=== PATIENT | male | born 1960 | race Caucasian/White ===

== ENCOUNTER 2018-10-27 00:29 | Outpatient (CLI) | payer MEDICARE, SELFPAY ==
--- NOTE | 2018-10-27 12:54 | DI.CT_ITS ---
SYMPTOMS/DIAGNOSIS: MAXILLARY SINUSITIS NOT IMPROVING ON ANTIBIOTICS, CHRONIC SINUSITIS, J32.[address]: CT examination of the paranasal sinuses was performed according to the usual protocol. Note is made of low attenuation in the anterior aspect of the right middle cranial fossa. This may represent an area of encephalomalacia or arachnoid cyst, but other etiologies including space-occupying neoplasm or chronic hematoma are not excluded. No previous CT available for comparison. Old examinations are requested for comparison or, if no old exams are available from other institutions, a brain MRI would be recommended. The orbital and temporal bone structures appear intact. Mastoid air cells are clear. Paranasal sinuses are clear. The ostiomeatal complexes of the maxillary antra appear intact bilaterally. Note is made of nasal septal deviation to the right. CONCLUSION: No evidence of sinusitis or mastoiditis. Incidental finding of abnormal attenuation/fluid attenuation in right middle cranial fossa. Brain MRI requested for further evaluation if no previous studies are available for comparison.
== END 2018-10-27 00:49 ==
PROVIDERS: PCP Family Medicine; Visit Provider Family Medicine
DX: J32.9 Chronic sinusitis, unspecified (principal); J34.2 Deviated nasal septum
CPT/HCPCS: 70486

== ENCOUNTER 2018-11-08 10:56 | Outpatient (CLI) | payer MEDICARE, SELFPAY ==
[2018-11-08 12:31] LABS: BUN 21 mg/dL (7-18); CREATININE 1.34 mg/dL (0.70-1.30); Estimated GFR 54.56 (mL/min/1.73m2)
== END 2018-11-08 11:16 ==
PROVIDERS: PCP Family Medicine; Visit Provider Physician Assistant
DX: J01.01 Acute recurrent maxillary sinusitis (principal)
CPT/HCPCS: 36415; 84520; 82565

== ENCOUNTER 2018-11-14 01:20 | Outpatient (CLI) | payer MEDICARE, SELFPAY ==
[2018-11-14] MEDS: Normal Saline Flush 10 ML SYR IVP (08:55)
[2018-11-14] MEDS: Gadoterate meglumine 20 ML VIAL 17 ML IVP (08:55)
--- NOTE | 2018-11-14 09:06 | DI.MRI_ITS ---
SYMPTOM/DIAGNOSIS: RECENT ACUTE MAXILLARY SINUSITIS, J01.01, F/U ABNL CT, R93.0, ABNL ATTENUATION/FLUID RT MIDDLE CRANIAL FOSSA IAC/BRAIN MRI: Routine pre and post contrast examination was performed. Comparison is made with sinus CT from 10/27/18. In the right middle cranial fossa, there is an extra-axial lesion measuring 4 cm. transverse by 2.9 cm. AP by 3 cm. craniocaudad. It follows CSF on all pulse sequences and shows no enhancement or solid component. There is some mass effect on the adjacent right temporal lobe. This is most suggestive of an arachnoid cyst. There is normal signal seen in the brain parenchyma. The ventricles are intact. The basilar cisterns are patent. There is no acute midline shift or mass effect. The diffusion weighted images are unremarkable. No intracranial hemorrhage is seen. There is a normal flow void seen in the [place] of [place]. The visualized paranasal sinuses are clear. The orbits and retro-orbital soft tissues are unremarkable. The internal auditory canals and cerebellar pontine angles have a normal appearance. Following contrast administration, no enhancing lesions are appreciated. IMPRESSION: 4 by 3 cm. lesion in the anterior aspect of the right middle cranial fossa as described above. The findings are most suggestive of a benign lesion such as an arachnoid cyst.
== END 2018-11-14 01:40 ==
PROVIDERS: PCP Family Medicine; Visit Provider Physician Assistant
DX: J01.01 Acute recurrent maxillary sinusitis (principal); R93.0 Abnormal findings on diagnostic imaging of skull and head, not elsewhere classified; G93.89 Other specified disorders of brain; G93.0 Cerebral cysts
CPT/HCPCS: 70553

== ENCOUNTER 2019-04-17 03:41 | Emergency (ER) | payer MEDICARE, SELFPAY ==
[2019-04-17 03:50] VITALS: BP 153/91; PULSE 89; RESP 18; TEMP 36.5; O2SAT 96
--- NOTE | 2019-04-17 03:59 | W.ED.GENAD ---
Discharge Plan Disposition Patient Disposition: HOME Condition: Good Discharge Details Chief Complaint: FacialProb Clinical Impression: Sinusitis Primary Care Provider: Rick Mccarthy ED Provider: Refugio Hansen Home Meds and New Rx's Prescriptions: New fluticasone propionate 50 mcg/actuation spray,suspension 1 spray JOHNIE BID Qty: 9.9 RF: 0 amoxicillin-pot clavulanate [Augmentin] 875-125 mg tablet 1 tab PO BID 14 Days Qty: 28 RF: 0 loratadine 10 mg capsule 10 mg PO DAILY Qty: 14 RF: 0 No Action cetirizine 10 mg tablet 10 mg PO DAILY Qty: 90 RF: 3 clopidogrel 75 mg tablet 75 mg PO DAILY Qty: 90 RF: 4 fluticasone propionate 50 mcg/actuation spray,suspension 1 spray NS BID Qty: 3 RF: 3 rosuvastatin 5 mg tablet 5 mg PO DAILY Qty: 30 RF: 2 aspirin [Aspirin Low-Strength] 81 MG tablet,chewable 81 mg PO DAILY RF: 0 sildenafil [Viagra] 100 MG tablet 0.5 - 1 tab PO As Directed Qty: 30 RF: 5 naproxen 500 MG tablet 500 mg PO BID PRNQty: 30 RF: 1 levothyroxine [Synthroid] 88 MCG tablet 88 mcg PO DAILY Qty: 90 RF: 4 ranitidine HCl [Zantac Maximum Strength] 150 MG tablet 150 mg PO BID PRNQty: 180 RF: 4 nitroglycerin [Nitrostat] 0.4 mg tablet, sublingual 0.4 mg Sublingual PRN Qty: 25 RF: 1 carbamazepine [Tegretol] 200 mg tablet 300 mg PO BID Qty: 270 RF: 4 Discharge Instructions Instructions: Sinusitis (ED) Additional Instructions: Please take the antibiotic, nasal spray, and antihistamine medication as directed. If you notice any worsening of your symptoms, or any new symptoms such as vomiting, diarrhea, fever, chills, shortness of breath, chest pain, numbness, weakness, or fainting , please return immediately to the emergency department for reevaluation. Please follow up with your primary care provider as soon as possible for reassessment and reevaluation. As always, it was a pleasure participating in your medical care today. Referrals: Rick Mccarthy MD [Primary Care Provider] - Medical Decision Making This is a pleasant 58-year-old male with a past medical history of myocardial infarction previous dental caries who presents today for evaluation of right upper sinus and dental pain. 1 month ago he had similar but less severe pain, at that time he saw his dentist, was given penicillin but had mild improvement of his symptoms. However the symptoms seem to have returned over the last few days, in conjunction with congestion. Physical exam demonstrates minimal tenderness over the right upper posterior molar tooth, but also notable tenderness over the maxillary sinus on the right. Slightly difficult to differentiate between sinusitis and dental pain, dental block was given, and although complete anesthesia was achieved over the tooth area the patient's pain persisted. I feel that this would suggest that his signs and symptoms are secondary to sinusitis and not actual dental pain. Signs and symptoms at this time are inconsistent with venous sinus abscess, sepsis, Angel's angina. patient will be given Augmentin, fluticasone, and loratadine for home use for sinusitis. Discussed red flags which to return. I have extensively reviewed the treatment plan and discharge instructions with the patient. I have addressed all patient concerns at this time. The patient was made aware of what symptoms to monitor for that would warrant a return to the emergency department. Discussed the plan with the patient, they demonstrate verbal understanding and agreement with our assessment and plan at this time. Time out was taken to identify the correct patient, procedure, and site. Risks and benefits were discussed with the patient and consent was obtained. Direct pressure was held over the area prior to the procedure to reduce painful injection. 5 cc?s of Lidocaine 1% and Bupivacaine 0.25% was instilled into the right upper superior posterior alveolar space with a 27 gauge needle.Complete analgesia of the tooth was obtained. The patient tolerated the procedure. There were no complications. HPI General Date/Time Provider Initiated Documentation: 04/17/19 03:47. HPI Narrative: This is a 58-year-old male with past medical history of myocardial infarction, previous dental caries, who presents today for evaluation of right upper tooth pain and right-sided sinus pain. Patient states that one month ago he developed mild achiness in his right upper molars. He was seen by his dentist, prescribed penicillin, pain resolved with this. This was 3 to 4 weeks ago. Over the last few days the patient has had a return of his symptoms, he describes it as an achiness in his right upper tooth in the posterior molars, as well as the right maxillary sinuses. There is some radiation down to the posterior lower jaw on the right. No pain in the neck or chest. He states that his symptoms when he had his myocardial infarction were completely dissimilar to this. He denies any fever chills or discharge. No other complaints at this time. No other modifying factors. Related Data Home Medications Medication Instructions Recorded Confirmed aspirin [Aspirin Low-Strength] 81 mg PO DAILY tab 10/05/12 04/11/19 sildenafil [Viagra] 0.5 - 1 tab PO As Directed #30 05/18/17 04/11/19 tab-cap naproxen 500 mg PO BID PRN #30 tab-cap 08/27/17 04/11/19 levothyroxine [Synthroid] 88 mcg PO DAILY #90 tab 02/10/18 04/11/19 ranitidine HCl [Zantac] 150 mg PO BID PRN #180 tab 02/10/18 04/11/19 nitroglycerin 0.4 mg sublingual 0.4 mg SUBLINGUAL PRN #25 tab-cap 04/11/18 04/11/19 tablet fluticasone propionate 50 1 spray NS BID #3 ea 05/13/18 04/11/19 mcg/actuation nasal spray,suspension carbamazepine 200 mg tablet 300 mg PO BID #270 tab 07/22/18 04/11/19 cetirizine 10 mg tablet 10 mg PO DAILY #90 tab-cap 09/01/18 04/11/19 clopidogrel 75 mg tablet 75 mg PO DAILY #90 tab-cap 09/01/18 04/11/19 rosuvastatin 5 mg tablet 5 mg PO DAILY #30 tab 04/11/19 04/11/19 amoxicillin-pot clavulanate 1 tab PO BID 14 Days #28 tab 04/17/19 [Augmentin] fluticasone propionate 1 spray JOHNIE BID #9.9 ml 04/17/19 loratadine 10 mg PO DAILY #14 cap 04/17/19 Previous Rx's Medication Instructions Recorded sildenafil [Viagra] 0.5 - 1 tab PO As Directed #30 05/18/17 tab-cap levothyroxine [Synthroid] 88 mcg PO DAILY #90 tab 02/10/18 nitroglycerin 0.4 mg sublingual 0.4 mg SUBLINGUAL PRN #25 tab-cap 04/11/18 tablet fluticasone propionate 50 1 spray NS BID #3 ea 05/13/18 mcg/actuation nasal spray,suspension carbamazepine 200 mg tablet 300 mg PO BID #270 tab 07/22/18 cetirizine 10 mg tablet 10 mg PO DAILY #90 tab-cap 09/01/18 clopidogrel 75 mg tablet 75 mg PO DAILY #90 tab-cap 09/01/18 rosuvastatin 5 mg tablet 5 mg PO DAILY #30 tab 04/11/19 amoxicillin-pot clavulanate 1 tab PO BID 14 Days #28 tab 04/17/19 [Augmentin] fluticasone propionate 1 spray JOHNIE BID #9.9 ml 04/17/19 loratadine 10 mg PO DAILY #14 cap 04/17/19 Allergies Allergy/AdvReac Type Severity Reaction Status Date / Time celecoxib Allergy Unknown Unverified 04/11/19 13:45 shellfish derived Allergy Unknown SHRIMP Unverified 04/11/19 13:45 General Stated Complaint: FacialProb GUY: 4 Review of Systems Review of Systems ROS Unobtainable: All systems reviewed & are unremarkable except as noted in HPI and below PFSH Medical History (Updated 04/11/19 @ 14:10 by Rick Mccarthy MD) Myocardial infarction (Resolved 12/27/14) Surgical History (Updated 04/04/19 @ 08:57 by Benson Davis) Arthroplasty of knee (~1997) right; medial meniscus Splenomegaly Social History (Updated 09/05/18 @ 08:32 by Rainer Karimi) Smoking/Tobacco Use Status: Former Tobacco Use Second Hand Exposure: Yes Alcohol Intake: never Drug use: Never Substance use type: does not use Household members: none Housing: house Pets and animals: No Sexually active: Yes Do you think of yourself as: straight/heterosexual Current gender identity: male What is your relationship status?: How often do you talk on the phone with friends or family?: three or more times per week How often do you get together with friends or relatives?: three or more times per week How often do you attend congregational or advent services?: 1-3 times per year Do you belong to any clubs or organized social groups?: no Panel score (0-1 are the most socially isolated patients): 1 What type of physical activity do you participate in: other Duration: 15-30 minutes/day Frequency: 1-2 times per week Katy/Jehovah'S Witness: Judaism Special katy needs: No Do you feel safe in your relationship?: Yes Exam Narrative Exam Narrative: 1.Const: Well-nourished, Well-developed, appearing stated age 2.Eyes: PERRL, no conjunctival injection, and symmetrical lids. 3.ENT: Atraumatic external nose and ears. Moist MM. Neck: Symmetric, trachea midline, No thyromegaly. Mild dental caries and caps throughout. Mild tenderness over the posterior right upper molars. No evidence of periapical abscess or swelling or discharge. Mild tenderness over maxillary sinus on the right. No carotid bruits, no pain in the jaw. Patient demonstrates good movement of cervical neck. There is no nuchal rigidity, no nuchal tenderness. Patient is able to flex the neck without any difficulty or significant pain. Negative Kernig's and Brudzinski sign. 4.CVS: +S1/S2, No murmurs or gallops. Peripheral pulses 2+ and equal in all extremities. Brisk capillary refill in all extremities. 5.RESP: Unlabored respiratory effort. Clear to auscultation bilaterally. No wheezes rales or rhonchi 6.GI: Soft, Nontender/Nondistended, No hepatosplenomegaly. No guarding or rebound. 7.MSK: Normocephalic/Atraumatic, Extremities w/o deformity or ttp No cyanosis or clubbing, Normal movement of all extremities 8.Skin: Warm, Dry. No rashes or lesions. 9.Neuro: trestleman II-XII grossly intact. Sensation grossly intact, no focal neurologic deficits. 10.Psych: (AAO) x3. Appropriate mood and affect Course Vital Signs Vital signs: Vital Signs Temperature 36.5 C 04/17/19 03:50 Pulse 89 04/17/19 03:50 Respiratory Rate 18 04/17/19 03:50 Blood Pressure 153/91 H 04/17/19 03:50 Pulse Oximetry 96 04/17/19 03:50 Temperature 36.5 C 04/17/19 03:50 Temperature Source Tympanic 04/17/19 03:50 Pulse 89 04/17/19 03:50 Respiratory Rate 18 04/17/19 03:50 Respiratory Effort 04/17/19 03:55 Blood Pressure 153/91 H 04/17/19 03:50 Blood Pressure Position Sitting 04/17/19 03:50 Pulse Oximetry 96 04/17/19 03:50 Oxygen Delivery Method Room Air 04/17/19 03:50 Oxygen Flow Rate 0 04/17/19 03:50 Pain Level 9 04/17/19 03:50
[2019-04-17] MEDS: Amoxicillin 875/Clav. 125 TAB PO (04:13)
== END 2019-04-17 04:20 | disposition home or self-care (01) ==
PROVIDERS: Emergency Provider Student in an Organized Health Care Education/Training Program; PCP Family Medicine
DX: J01.90 Acute sinusitis, unspecified (principal)
CPT/HCPCS: 64400; 99283

== ENCOUNTER 2019-05-11 07:00 | Outpatient (CLI) | payer MEDICARE, SELFPAY ==
[2019-05-11 12:38] LABS: Calculated LDL 128 mg/dL; Cholesterol 228 mg/dL (50-200); HDL Cholesterol 52 mg/dL (40-60); Triglyceride 242 mg/dL (30-150)
== END 2019-05-11 07:20 ==
PROVIDERS: PCP Family Medicine; Visit Provider Family Medicine
DX: E78.5 Hyperlipidemia, unspecified (principal)
CPT/HCPCS: 36415; 80061

== ENCOUNTER 2020-02-06 07:59 | Outpatient (CLI) | payer MEDICARE, SELFPAY ==
[2020-02-11 11:02] LABS: SARS-CoV-2 RNA Undetected (Undetected)
== END 2020-02-06 08:19 ==
PROVIDERS: Family Medicine; PCP Family Medicine; Visit Provider Family Medicine
DX: J06.9 Acute upper respiratory infection, unspecified (principal)
CPT/HCPCS: U0003

== ENCOUNTER 2020-02-06 09:40 | Emergency (ER) | payer MEDICARE, SELFPAY ==
[2020-02-06 09:44] VITALS: BP 156/89; PULSE 98; TEMP 36.6; O2SAT 98
--- NOTE | 2020-02-06 10:04 | ED.GENADUL_ITS ---
Discharge Plan Disposition Patient Disposition: HOME Condition: Stable Discharge Details Chief Complaint: GenMedical Clinical Impression: Sinusitis Primary Care Provider: Rick Mccarthy ED Provider: Willy Osman Home Meds and New Rx's Prescriptions: New amoxicillin 875 mg tablet 875 mg PO BID Qty: 20 RF: 0 Continued fluticasone propionate 50 mcg/actuation spray,suspension 1 spray NS BID Qty: 3 RF: 3 alirocumab 75 mg/mL pen injector 75 mg SC Q2W RF: 0 clopidogrel 75 mg tablet 75 mg PO DAILY Qty: 90 RF: 4 aspirin [Aspirin Low-Strength] 81 MG tablet,chewable 81 mg PO DAILY RF: 0 sildenafil [Viagra] 100 MG tablet 0.5 - 1 tab PO As Directed Qty: 30 RF: 5 carbamazepine [Tegretol] 200 mg tablet 300 mg PO BID Qty: 270 RF: 4 levothyroxine [Synthroid] 88 mcg tablet 88 mcg PO DAILY Qty: 90 RF: 4 nitroglycerin [Nitrostat] 0.4 mg tablet, sublingual 0.4 mg Sublingual PRN Qty: 25 RF: 1 Discharge Instructions Instructions: Sinusitis (ED) Additional Instructions: Amoxicillin as directed. Expr-osn-nlrjoxf medications as directed for symptomatic control. Please watch for new or worsening symptoms and return to the ER for any concerns. I do recommend reaching out your primary care provider and ENT specialist for prompt outpatient reevaluation. Medical Decision Making 59-year-old gentleman presents requesting a prescription for amoxicillin for his acute on chronic sinus infection. Given his history of splenectomy he is concerned about a weakened immune response. He reports this is been going on for quite some time, evaluated by both his primary care and ENT specialty in the past. He has tried cigz-lmc-gprhkzv medications without relief. Symptoms are now present going on nearly a week, pain in his face, teeth, sinuses. He is currently afebrile. Given the duration of his symptoms, his past medical history of multiple sinus infections, and his facial pain, I do believe that treating with antibiotics is reasonable. Given the COVID pandemic he is currently unable to be seen by his primary care provider. Medical Records Medical records reviewed: Yes I reviewed the patient's medical records. HPI General Mode of arrival: ambulatory . Date/Time Provider Initiated Documentation: 02/06/20 09:41 . Limitations to Documentation: no limitations . Information obtained by: patient . HPI Narrative: This is a 59-year-old gentleman with history of splenectomy, GERD hypothyroidism, seizure disorder, heart disease, [place], anemia, presenting with what he describes as a sinus infe ction is been going on for little over a week. He reports pain and pressure in his forehead, face, teeth. He reports that he has a long history of similar sinus infections, has followed up with ENT specialist, has been trying vlmi-guo-mymzhgu medications without any significant relief. He is concerned because he reports I have a weak immune response and if I do not get antibiotics now I will be laying in the hospital stretcher in a week from now. He denies global headache, sore throat, neck pain, fever, chest pain, shortness of breath. Related Data Home Medications Medication Instructions Recorded Confirmed aspirin [Aspirin Low-Strength] 81 mg PO DAILY tab 10/05/12 02/06/20 sildenafil [Viagra] 0.5 - 1 tab PO As Directed #30 05/18/17 02/06/20 tab-cap fluticasone propionate 50 1 spray NS BID #3 ea 05/13/18 02/06/20 mcg/actuation nasal spray,suspension Tegretol 200 mg tablet 300 mg PO BID #270 tab NS 04/17/19 02/06/20 levothyroxine 88 mcg tablet 88 mcg PO DAILY #90 tab 05/10/19 02/06/20 alirocumab 75 mg/mL subcutaneous 75 mg SC Q2W 09/08/19 02/06/20 pen injector clopidogrel 75 mg tablet 75 mg PO DAILY #90 tab-cap 09/08/19 02/06/20 nitroglycerin 0.4 mg sublingual 0.4 mg SUBLINGUAL PRN #25 tab-cap 09/29/19 02/06/20 tablet amoxicillin 875 mg PO BID #20 tab 02/06/20 Previous Rx's Medication Instructions Recorded sildenafil [Viagra] 0.5 - 1 tab PO As Directed #30 05/18/17 tab-cap fluticasone propionate 50 1 spray NS BID #3 ea 05/13/18 mcg/actuation nasal spray,suspension Tegretol 200 mg tablet 300 mg PO BID #270 tab NS 04/17/19 levothyroxine 88 mcg tablet 88 mcg PO DAILY #90 tab 10/23/19 clopidogrel 75 mg tablet 75 mg PO DAILY #90 tab-cap 09/08/19 nitroglycerin 0.4 mg sublingual 0.4 mg SUBLINGUAL PRN #25 tab-cap 09/29/19 tablet amoxicillin 875 mg PO BID #20 tab 02/06/20 Allergies Allergy/AdvReac Type Severity Reaction Status Date / Time celecoxib Allergy Unknown Verified 02/06/20 09:47 shellfish derived Allergy Unknown SHRIMP Verified 02/06/20 09:47 General Stated Complaint: GenMedical GUY: 4 Review of Systems Constitutional Constitutional: Denies fever(s) Eyes Eyes: Denies eye discharge ENT Ears, Nose, Mouth, and Throat: Denies otalgia, Denies neck pain, Reports sinus pressure and Denies sore throat Cardiovascular Cardiovascular: Denies chest pain and Denies dyspnea Respiratory Respiratory: Denies cough and Denies dyspnea Gastrointestinal Gastrointestinal: Denies abdominal pain, Denies nausea and Denies vomiting Musculoskeletal Musculoskeletal: Denies neck pain Integumentary/Breasts Skin/Breast: Denies rash [facility] Medical History Myocardial infarction (Resolved 12/27/14) Surgical History Arthroplasty of knee (~1997) right; medial meniscus Splenomegaly Family History Mother No problems noted. Father No problems noted. Sister No problems noted. Brother No problems noted. Social History Smoking/Tobacco Use Status: Former Tobacco Use Quit Date: 07/19/79 Second Hand Exposure: Yes Alcohol Intake: current Alcohol Intake frequency: holidays/special occasions only Alcohol type: beer Drug use: Never Substance use type: does not use Household members: none Housing: house Communication Needs: None Pets and animals: No Sexually active: Yes Do you think of yourself as: straight/heterosexual Current gender identity: male What is your relationship status?: How often do you talk on the phone with friends or family?: three or more times per week How often do you get together with friends or relatives?: three or more times per week How often do you attend yazdanism or baptism services?: 1-3 times per year Do you belong to any clubs or organized social groups?: no Panel score (0-1 are the most socially isolated patients): 1 Duration: 15-30 minutes/day Frequency: 3-4 times per week Katy/Druze: Tenriism Special katy needs: No Seatbelt use: always Helmet use: Yes Helmet use: always Drive intox or ride w/intox city route driver: No Do you feel safe at home: Yes Do you feel safe in your relationship?: Yes Exam Const General: cooperative, healthy appearing, comfortable and no acute distress Orientation: alert, awake and oriented x3 HENMT Head: normal to inspection, normocephalic and atraumatic Ears: external ears normal, TM's normal bilaterally and EAC's normal General nose exam: external nose normal and mucous membranes and turbinates abnormal erythematous Face and sinus: sinus tenderness frontal and maxillary Mouth: moist mucous membranes Teeth and gingiva: dentition normal Throat: posterior oropharynx normal Eyes Conjunctivae: conjunctivae normal Sclera: sclerae normal Neck Neck: normal visual inspection, full ROM, no lymphadenopathy, no meningeal signs, trachea midline, supple and nontender Resp Effort & Inspection: normal respiratory effort and able to speak in complete sentences Auscultation: clear to auscultation bilaterally Cardio Rate: regular rate Rhythm: regular rhythm Skin General skin exam: no rashes or lesions noted Neuro General: patient alert, patient awake, moves all extremities and no focal motor deficits Sensory Exam: no sensory deficits noted Psych Appearance: grossly normal Mental Status: mental status grossly normal Course Vital Signs Vital signs: Vital Signs Temperature 36.6 C 02/06/20 09:44 Pulse 98 H 02/06/20 09:44 Blood Pressure 156/89 H 02/06/20 09:44 Pulse Oximetry 98 02/06/20 09:44 Temperature 36.6 C 02/06/20 09:44 Pulse 98 H 02/06/20 09:44 Respiratory Effort Non-Labored 02/06/20 09:54 Respiratory Depth Normal 02/06/20 09:54 Respiratory Pattern Normal 02/06/20 09:54 Blood Pressure 156/89 H 02/06/20 09:44 Pulse Oximetry 98 02/06/20 09:44 Oxygen Delivery Method Room Air 02/06/20 09:44 Oxygen Flow Rate 0 02/06/20 09:44 Pain Level 4 02/06/20 09:44
== END 2020-02-06 10:17 | disposition home or self-care (01) ==
PROVIDERS: Emergency Provider Physician Assistant; PCP Family Medicine
DX: R51 Headache (principal); R09.81 Nasal congestion; J01.80 Other acute sinusitis; J32.8 Other chronic sinusitis
CPT/HCPCS: 99283; U0003

== ENCOUNTER 2020-05-15 04:45 | Outpatient (CLI) | payer MEDICARE, SELFPAY ==
[2020-05-15 13:33] LABS: Hemoglobin A1C 5.6 % (<5.7)
[2020-05-15 13:42] LABS: ALT 25 U/L (16-63); AST 25 U/L (15-37); Albumin 3.9 g/dL (3.4-5.0); Alkaline Phosphatase 122 U/L (46-116); Anion Gap 6.5 mmol/L (3-11); BUN 20 mg/dL (7-18); Bilirubin, Total 0.5 mg/dL (0.2-1.0); CO2 30.5 mmol/L (21.0-32.0); CREATININE 1.28 mg/dL (0.70-1.30); Calcium 9.1 mg/dL (8.5-10.1); Calculated LDL 83 mg/dL (<100); Chloride 101 mmol/L (98-107); Cholesterol 166 mg/dL (<200); Estimated GFR 57.33 (mL/min/1.73m2); Glucose 91 mg/dL (74-106); HDL Cholesterol 62 mg/dL (40-60); Potassium 4.7 mmol/L (3.5-5.1); Sodium 138 mmol/L (136-145); Total Protein 7.1 g/dL (6.4-8.2); Triglyceride 109 mg/dL (<150)
[2020-05-15 13:59] LABS: FREE T4 0.92 ng/dL (0.76-1.46)
== END 2020-05-15 05:05 ==
PROVIDERS: PCP Nurse Practitioner Family; Visit Provider Nurse Practitioner Family
DX: E03.9 Hypothyroidism, unspecified (principal); R73.03 Prediabetes; I25.10 Atherosclerotic heart disease of native coronary artery without angina pectoris
CPT/HCPCS: 36415; 80053; 80061; 83036; 84439; 84443

== ENCOUNTER 2020-06-14 09:21 | Emergency (ER) | payer MEDICARE, SELFPAY ==
[2020-06-14 09:26] VITALS: BP 139/73; PULSE 99; RESP 16; TEMP 36.4; O2SAT 100
--- NOTE | 2020-06-14 09:37 | ED.GENADUL_ITS ---
Discharge Plan Disposition Patient Disposition: HOME Condition: Stable Discharge Details Clinical Impression: Closed fracture of left thumb Primary Care Provider: Patrica Carlos ED Provider: Nahed Galvan Home Meds and New Rx's Prescriptions: Continued carbamazepine [Tegretol] 200 mg tablet 300 mg PO BID Qty: 270 RF: 4 sildenafil 50 mg tablet 50 mg PO ONCE Qty: 30 RF: 5 fluticasone propionate 50 mcg/actuation spray,suspension 1 spray NS BID Qty: 3 RF: 3 alirocumab 75 mg/mL pen injector 75 mg SC Q2W RF: 0 clopidogrel 75 mg tablet 75 mg PO DAILY Qty: 90 RF: 4 aspirin [Aspirin Low-Strength] 81 MG tablet,chewable 81 mg PO DAILY RF: 0 nitroglycerin [Nitrostat] 0.4 mg tablet, sublingual 0.4 mg Sublingual PRN Qty: 25 RF: 1 levothyroxine [Synthroid] 88 mcg tablet 88 mcg PO DAILY Qty: 90 RF: 4 Discharge Instructions Instructions: Thumb Fracture (ED) Additional Instructions: Wear splint as directed. Rest, ice, elevation and compression. On x-ray you have a comminuted distal fracture. Please follow-up with orthopedics. We will place you on a follow-up list. They should contact you with an appointment if not you may call them directly yourself. Follow up with primary care provider in 3-5 days. Return to ED sooner if any worsening or concerns. Increase oral fluids. Please take Tylenol or Ibuprofen with food every 4-6 hours as needed for pain and swelling. Referrals: Patrica Carlos NP [Primary Care Provider] - Jeremy Hough MD [ [facility] STAFF PHYSICIAN] - Medical Decision Making 59-year-old male presents to the ER with chief complaint of left thumb pain. He states that he crushed his left thumb with a hammer approximately 1 week ago. He reports at that time did have some swelling, some bleeding, he did do a nail trephination on his own at home which relieves the pressure. He states that now that the swelling has gone down he feels the bone clicking and moving around in there she is concerned that it may possibly be fractured and is requesting an x-ray. He has no other complaints at this time. On initial exam he does have some dried subungual hematoma noted to the base of his nail. It is slightly swollen. EXAM: XR THUMB LT CLINICAL HISTORY: Crush injury 1 week ago, r/o fracture TECHNIQUE: COMPARISON: No exams were available for comparison FINDINGS: Three views were obtained. There is a comminuted mildly displaced fracture of the distal phalanx of thumb involving the distal half of the bone without involvement of the proximal articular surface. No additional fracture seen involving or other visualized bones. IMPRESSION: Distal phalangeal fracture of the thumb as described above. Patient was given a thumb splint applied by clinical staff educator, instructed on follow-up care verbalized understanding. Given orthopedic referral. HPI General Mode of arrival: ambulatory . Date/Time Provider Initiated Documentation: 06/14/20 09:35 . Limitations to Documentation: no limitations . Information obtained by: patient . HPI Narrative: 59-year-old male presents to the ER with chief complaint of left thumb pain. He states that he crushed his left thumb with a hammer approximately 1 week ago. He reports at that time did have some swelling, some bleeding, he did do a nail trephination on his own at home which relieves the pressure. He states that now that the swelling has gone down he feels the bone clicking and moving around in there she is concerned that it may possibly be fractured and is requesting an x-ray. He has no other complaints at this time. On initial exam he does have some dried subungual hematoma noted to the base of his nail. It is slightly swollen. Related Data Home Medications Medication Instructions Recorded Confirmed aspirin [Aspirin Low-Strength] 81 mg PO DAILY tab 10/05/12 06/14/20 fluticasone propionate 50 1 spray NS BID #3 ea 05/13/18 06/14/20 mcg/actuation nasal spray,suspension alirocumab 75 mg/mL subcutaneous 75 mg SC Q2W 09/08/19 06/14/20 pen injector clopidogrel 75 mg tablet 75 mg PO DAILY #90 tab-cap 09/08/19 06/14/20 nitroglycerin 0.4 mg sublingual 0.4 mg SUBLINGUAL PRN #25 tab-cap 09/29/19 06/14/20 tablet Tegretol 200 mg tablet 300 mg PO BID #270 tab NS 05/09/20 06/14/20 sildenafil 50 mg tablet 50 mg PO ONCE #30 tab-cap 05/09/20 06/14/20 levothyroxine 88 mcg tablet 88 mcg PO DAILY #90 tab 05/16/20 06/14/20 Previous Rx's Medication Instructions Recorded fluticasone propionate 50 1 spray NS BID #3 ea 05/13/18 mcg/actuation nasal spray,suspension clopidogrel 75 mg tablet 75 mg PO DAILY #90 tab-cap 09/08/19 nitroglycerin 0.4 mg sublingual 0.4 mg SUBLINGUAL PRN #25 tab-cap 09/29/19 tablet Tegretol 200 mg tablet 300 mg PO BID #270 tab NS 05/09/20 sildenafil 50 mg tablet 50 mg PO ONCE #30 tab-cap 05/09/20 levothyroxine 88 mcg tablet 88 mcg PO DAILY #90 tab 05/16/20 Allergies Allergy/AdvReac Type Severity Reaction Status Date / Time celecoxib Allergy Unknown Verified 06/14/20 09:29 shellfish derived Allergy Unknown SHRIMP Verified 06/14/20 09:29 General Stated Complaint: Orthopedic GUY: 4 Review of Systems All systems reviewed & are unremarkable except as noted in HPI and below Musculoskeletal Musculoskeletal: Reports arthralgias (Left thumb) and Reports joint swelling (Left thumb) [facility] Medical History Absence seizure Allergic rhinitis Aortic valve disease Mild stenosis, moderate regurgitation. [facility] [place] [facility] Asplenia Cardiomyopathy Followed by [facility] Chronic fatigue Since treatment for Hodgkins lymphoma Chronic sinusitis Coronary artery disease [place] x 2. Followed by [facility] Depressive disorder Elevated alkaline phosphatase level Negative GGT. Bone scan normal Erectile dysfunction Gastroesophageal reflux disease Hodgkin lymphoma 1991 and 1994 s/p chemo, radiation Hyperlipidemia Followed by [facility] Hypothyroidism NSTEMI (non-ST elevated myocardial infarction) (07/09/08) Prediabetes STEMI (ST elevation myocardial infarction) (12/19/14) Inferior STEMI Surgical History S/P medial meniscus repair of right knee (~1997) S/P splenectomy Stented coronary artery GAVIN to RCA x 2, distal left main, proximal left circumflex Family History Mother No problems noted. Father No problems noted. Sister No problems noted. Brother No problems noted. Social History (Reviewed 06/14/20 @ 09:39 by Nahed Talley Smoking/Tobacco Use Status: Former Tobacco Use Quit Date: 07/19/79 Second Hand Exposure: Yes Smoking risk assessment performed?: Yes Alcohol Intake: current Alcohol Intake frequency: holidays/special occasions only Alcohol type: beer Drug use: Never Substance use type: does not use Household members: none Housing: house Communication Needs: None Pets and animals: No Sexually active: Yes Do you think of yourself as: straight/heterosexual Current gender identity: male What is your relationship status?: How often do you talk on the phone with friends or family?: three or more times per week How often do you get together with friends or relatives?: three or more times per week How often do you attend samaritan or anabaptist services?: 1-3 times per year Do you belong to any clubs or organized social groups?: no Panel score (0-1 are the most socially isolated patients): 1 Duration: 15-30 minutes/day Frequency: 3-4 times per week Katy/Jainism: Gnosticist Special katy needs: No Seatbelt use: always Helmet use: Yes Helmet use: always Drive 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 Ecchymosis and subungual hematoma noted to the base of his thumbnail, mild swelling noted. No obvious deformity. Course Vital Signs Vital signs: Vital Signs Temperature 36.4 C L 06/14/20 09:26 Pulse 99 H 06/14/20 09:26 Respiratory Rate 16 06/14/20 09:26 Blood Pressure 139/73 06/14/20 09:26 Pulse Oximetry 100 06/14/20 09:26 Temperature 36.4 C L 06/14/20 09:26 Temperature Source Skin 06/14/20 09:26 Pulse 99 H 06/14/20 09:26 Respiratory Rate 16 06/14/20 09:26 Respiratory Effort Non-Labored 06/14/20 09:26 Blood Pressure 139/73 06/14/20 09:26 Blood Pressure Position Sitting 06/14/20 09:26 Pulse Oximetry 100 06/14/20 09:26 Oxygen Delivery Method Room Air 06/14/20 09:26 Oxygen Flow Rate 0 06/14/20 09:26 Pain Level 3 06/14/20 09:31
--- NOTE | 2020-06-14 09:58 | DI.RAD_ITS ---
EXAM: XR THUMB LT CLINICAL HISTORY: Crush injury 1 week ago, r/o fracture TECHNIQUE: COMPARISON: No exams were available for comparison FINDINGS: Three views were obtained. There is a comminuted mildly displaced fracture of the distal phalanx of thumb involving the distal half of the bone without involvement of the proximal articular surface. N o additional fracture seen involving or other visualized bones. IMPRESSION: Distal phalangeal fracture of the thumb as described above. RADIATION DOSE DELIVERED: Total DLP
== END 2020-06-14 10:37 | disposition home or self-care (01) ==
LOC: ER 10:34
PROVIDERS: Emergency Provider Registered Nurse Emergency; PCP Nurse Practitioner Family
DX: S62.522A Displaced fracture of distal phalanx of left thumb, initial encounter for closed fracture (principal); W27.0XXA Contact with workbench tool, initial encounter
CPT/HCPCS: 26750; 73140

== ENCOUNTER 2020-07-09 13:45 | Outpatient (CLI) | payer MEDICARE, SELFPAY | END 2020-07-09 14:05 | PROVIDERS: PCP Nurse Practitioner Family; Visit Provider Physician Assistant | DX: S62.522A Displaced fracture of distal phalanx of left thumb, initial encounter for closed fracture (principal); W27.0XXA Contact with workbench tool, initial encounter | CPT/HCPCS: 99214 ==

== ENCOUNTER 2020-10-09 04:19 | Outpatient (CLI) | payer MEDICARE, SELFPAY ==
[2020-10-09 18:34] LABS: PSA, Screening 2.3 ng/mL (0.0-4.5)
== END 2020-10-09 04:20 | disposition home or self-care (01) ==
LOC: LBO 04:19
PROVIDERS: PCP Nurse Practitioner Family; Visit Provider Nurse Practitioner Family
DX: N40.0 Benign prostatic hyperplasia without lower urinary tract symptoms (principal); Z12.5 Encounter for screening for malignant neoplasm of prostate
CPT/HCPCS: 36415; 84153

== ENCOUNTER 2021-06-04 03:28 | Outpatient (CLI) | payer MEDICARE, SELFPAY ==
[2021-06-04 10:24] LABS: Calculated LDL 84 mg/dL (<100); Cholesterol 181 mg/dL (<200); Glucose 93 mg/dL (74-106); HDL Cholesterol 74 mg/dL (40-60); Triglyceride 118 mg/dL (<150)
== END 2021-06-04 03:29 | disposition home or self-care (01) ==
LOC: LBO 03:28
PROVIDERS: PCP Nurse Practitioner Family; Visit Provider Internal Medicine
DX: R73.03 Prediabetes (principal); E78.01 Familial hypercholesterolemia
CPT/HCPCS: 36415; 80061; 82947

== ENCOUNTER 2021-07-14 04:22 | Outpatient (CLI) | payer MEDICARE, SELFPAY ==
[2021-07-14 11:39] LABS: Anion Gap 6.3 mmol/L (3-11); BUN 19 mg/dL (7-18); CO2 30.7 mmol/L (21.0-32.0); CREATININE 1.3 mg/dL (0.70-1.30); Calcium 8.9 mg/dL (8.5-10.1); Chloride 102 mmol/L (98-107); Estimated GFR 55.94 (mL/min/1.73m2); FREE T4 0.89 ng/dL (0.76-1.46); Glucose 72 mg/dL (74-106); Potassium 4.4 mmol/L (3.5-5.1); Sodium 139 mmol/L (136-145); TSH 1.16 uIU/mL (0.36-3.74)
== END 2021-07-14 04:23 | disposition home or self-care (01) ==
LOC: LBO 04:22
PROVIDERS: PCP Nurse Practitioner Family; Visit Provider Nurse Practitioner Family
DX: E03.9 Hypothyroidism, unspecified (principal)
CPT/HCPCS: 36415; 80048; 84439; 84443

== ENCOUNTER 2021-08-01 18:40 | Outpatient (REF) | payer MEDICARE, SELFPAY ==
[2021-08-03 15:40] LABS: COVID-19 RT-PCR UVMMC Result Negative (Negative)
== END 2021-08-01 18:41 | disposition home or self-care (01) ==
LOC: LBN 18:40
PROVIDERS: PCP Nurse Practitioner Family; Visit Provider Family Medicine
DX: Z20.822 Contact with and (suspected) exposure to COVID-19 (principal)
CPT/HCPCS: U0003

== ENCOUNTER 2021-11-21 08:05 | Emergency (ER) | payer MEDICARE, SELFPAY ==
[2021-11-21 08:10] VITALS: BP 160/125; PULSE 76; RESP 14; TEMP 36.4; O2SAT 97
--- NOTE | 2021-11-21 08:35 | W.ED.GENAD ---
Discharge Plan Disposition Patient Disposition: HOME Condition: Stable Discharge Details Clinical Impression: Pneumonia Primary Care Provider: Patrica Carlos ED Provider: Lorna Vaughan Home Meds and New Rx's Prescriptions: New levofloxacin 750 mg tablet 750 mg PO DAILY 5 Days Qty: 5 0RF Continued clopidogrel 75 mg tablet 75 mg PO DAILY Qty: 90 4RF pantoprazole [Protonix] 20 mg tablet,delayed release (DR/EC) 20 mg PO DAILY Qty: 90 4RF Rx Instructions: Take 1 tablet once a day tadalafil [Cialis] 10 mg tablet 10 mg PO ONCE PRN (Reason: sexual activity) Qty: 60 1RF Rx Instructions: Take 1 tab at least 30 minutes prior to anticipated sexual activity aspirin [Aspirin Low-Strength] 81 MG tablet,chewable 81 mg PO DAILY 0RF Praluent Pen 150 mg/mL pen injector 150 mg subcut Q14D 0RF levothyroxine [Synthroid] 88 mcg tablet 88 mcg PO DAILY Qty: 90 4RF carbamazepine [Tegretol] 200 mg tablet 300 mg PO BID Qty: 270 4RF nitroglycerin [Nitrostat] 0.4 mg tablet, sublingual 0.4 mg Sublingual PRN Qty: 25 1RF Discharge Instructions Instructions: Pneumonia (ED) Additional Instructions: Take the antibiotic as prescribed Have yogurt daily while on the antibiotic or acidophilus pills You will need follow-up with Dr. Markham, she has her manufacturer's representative and this is important If you do not hear from the office by Wednesday call to set up an appointment Please return with recurrent episodes of hemoptysis, shortness of breath, difficulty swallowing, weakness, dizziness, or should he have new or worsening complaints Skip your dose of Plavix and aspirin today and resume them tomorrow if you do not have any additional episodes of hemoptysis Referrals: Kallie Carrillo MD [ [facility] STAFF PHYSICIAN] - 1 day Medical Decision Making Patient appears well, he has not had any episodes of hemoptysis in the emergency department Chest x-ray showed evidence of an infiltrate versus mass and PET/CT was ordered for further differentiation CBC and CMP are reassuring Very low suspicion for pulmonary embolism clinically, patient does not or tachypnea He is also not tachycardic Discussed CT noncontrast chest with reading radiologist and he stated blood apical infiltrate in the right lower lobe infiltrate Patient is low risk for TB and denies known previous exposure Given patient's history of Hodgkin's lymphoma, and 28, and hemoptysis, the case was discussed with Dr. Markham, pulmonology and she will see the patient in close outpatient follow-up He started on Levaquin 750 mg for 5 days Unable to obtain sputum culture in the emergency department Given low threshold to return should he have Medical Records Medical records reviewed: Yes I reviewed the patient's medical records. Lab Data Lab results reviewed: Yes I reviewed the patient's lab results. HPI General Date/Time Provider Initiated Documentation: 11/21/21 08:06. HPI Narrative: This 61-year-old male with history of Hodgkin's lymphoma, asplenia, hyperlipidemia, coronary artery disease with 2 stents cardiomyopathy, seizure history, hypothyroidism presents with report of hemoptysis this morning upon awakening. He states he felt fine and has not had cough, shortness of breath, fever, or chills. He denies any chest pain or swelling, recent flights, surgeries, long drives. He denies any new medications. He is on antiplatelet therapy, Plavix and aspirin for his coronary disease history. He denies any anticoagulation. approximately 3 to 4 tablespoons of blood Related Data Home Medications Medication Instructions Recorded Confirmed aspirin 81 mg chewable tablet 81 mg PO DAILY tab 10/05/12 11/21/21 (Aspirin Low-Strength) alirocumab 150 mg/mL subcutaneous 150 mg SUBCUT Q14D 07/07/21 11/21/21 pen injector (Praluent Pen) Tegretol 200 mg tablet 300 mg PO BID #270 tab NS 07/09/21 11/21/21 (carbamazepine) levothyroxine 88 mcg tablet 88 mcg PO DAILY #90 tab 07/09/21 11/21/21 (Synthroid) clopidogrel 75 mg tablet 75 mg PO DAILY #90 tab-cap 10/03/21 11/21/21 pantoprazole 20 mg tablet,delayed 20 mg PO DAILY #90 tab 10/03/21 11/21/21 release (Protonix) tadalafil 10 mg tablet (Cialis) 10 mg PO ONCE PRN #60 tab 10/03/21 11/21/21 nitroglycerin 0.4 mg sublingual 0.4 mg SUBLINGUAL PRN #25 tab-cap 11/10/21 11/21/21 tablet (Nitrostat) levofloxacin 750 mg tablet 750 mg PO DAILY 5 Days #5 tab 11/21/21 Previous Rx's Medication Instructions Recorded Tegretol 200 mg tablet 300 mg PO BID #270 tab NS 07/09/21 (carbamazepine) levothyroxine 88 mcg tablet 88 mcg PO DAILY #90 tab 07/09/21 (Synthroid) clopidogrel 75 mg tablet 75 mg PO DAILY #90 tab-cap 10/03/21 pantoprazole 20 mg tablet,delayed 20 mg PO DAILY #90 tab 10/03/21 release (Protonix) tadalafil 10 mg tablet (Cialis) 10 mg PO ONCE PRN #60 tab 10/03/21 nitroglycerin 0.4 mg sublingual 0.4 mg SUBLINGUAL PRN #25 tab-cap 11/10/21 tablet (Nitrostat) levofloxacin 750 mg tablet 750 mg PO DAILY 5 Days #5 tab 11/21/21 Allergies Allergy/AdvReac Type Severity Reaction Status Date / Time celecoxib Allergy Unknown Verified 11/21/21 08:14 shellfish derived Allergy Unknown SHRIMP Verified 11/21/21 08:14 [id number] Reductase AdvReac Body Verified 11/21/21 08:14 Inhibitor aches; [[id number] Reductase Nausea Inhibitor] General Stated Complaint: RespSymp GUY: 3 Review of Systems All systems reviewed & are unremarkable except as noted in HPI and below PFSH All Active Problems (Updated 11/21/21 @ 10:59 by MOHAMUD Donohue) Pneumonia (Acute) Coronary artery disease (Chronic) [place] x 2 s/p GAVIN to RCA x 2, distal left main, proximal left circumflex 2014. Followed by [facility] Cardiomyopathy (Chronic) Followed by [facility] Hyperlipidemia (Chronic) Followed by [facility] Aortic valve disease (Chronic) Mild stenosis, moderate regurgitation. 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 Bone scan normal Hodgkin lymphoma 1991 and 1994 s/p chemo, radiation NSTEMI (non-ST elevated myocardial infarction) (07/09/08) Prediabetes STEMI (ST elevation myocardial infarction) (12/19/14) Inferior STEMI Surgical History S/P medial meniscus repair of right knee (~1997) S/P splenectomy Stented coronary artery (01/22/15) GAVIN to RCA x 2, distal left main, proximal left circumflex Family History Mother No problems noted. Father No problems noted. Sister No problems noted. Brother No problems noted. Daughter No problems noted. Daughter No problems noted. Daughter No problems noted. Maternal Grandfather No problems noted. Maternal Grandmother No problems noted. Paternal Grandfather No problems noted. Paternal Grandmother No problems noted. Social History (Updated 10/10/21 @ 13:26 by Miryam Olea) Smoking/Tobacco Use Status: Former Tobacco Use Quit Date: 07/19/79 Tobacco: How many years used: 6 Second Hand Exposure: Yes Smoking risk assessment performed?: Yes Alcohol Intake: never Drug use: Never Substance use type: does not use Household members: none Pets and animals: No Sexually active: Yes Do you think of yourself as: straight/heterosexual Current gender identity: male What is your relationship status?: How often do you talk on the phone with friends or family?: once per week How often do you get together with friends or relatives?: three or more times per week Do you belong to any clubs or organized social groups?: yes Panel score (0-1 are the most socially isolated patients): 2 Duration: 30-45 minutes/day Frequency: daily Seatbelt use: always Helmet use: Yes Helmet use: always Drive 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 Do you feel safe at home: Yes Do you feel safe in your relationship?: Yes Exam Const General: cooperative, comfortable and no acute distress HENMT Other: Telangiectasia right nare along septum Small 1 mm jackie of blood noted on tongue, red Uvula midline, no evidence of active bleeding Eyes Pupils: PERRL Neck Other: No stridor Resp Effort & Inspection: normal respiratory effort Auscultation: clear to auscultation bilaterally Cardio Rate: regular rate Rhythm: regular rhythm GI Inspection: normal to inspection Other: Nontender abdominal exam Skin General skin exam: no rashes or lesions noted Neuro General: patient alert and patient oriented x3 Extrem Other: Distal pulses intact, no calf swelling or tenderness Course Vital Signs Vital signs: Vital Signs Temperature 36.4 C L 11/21/21 08:10 Pulse 76 11/21/21 08:10 Respiratory Rate 14 11/21/21 08:10 Blood Pressure 160/125 H 11/21/21 08:10 Pulse Oximetry 97 11/21/21 08:10 Temperature 36.4 C L 11/21/21 08:10 Temperature Source Temporal Artery Scan 11/21/21 08:10 Pulse 76 11/21/21 08:10 Respiratory Rate 14 11/21/21 08:10 Respiratory Effort Non-Labored 11/21/21 08:16 Respiratory Depth Normal 11/21/21 08:16 Blood Pressure 160/125 H 11/21/21 08:10 Blood Pressure Position Supine 11/21/21 08:10 Pulse Oximetry 97 11/21/21 08:10 Oxygen Delivery Method Room Air 11/21/21 08:10 Oxygen Flow Rate 0 11/21/21 08:10 Pain Level 0 11/21/21 08:10
[2021-11-21 08:51] LABS: Source Nasal/Nares
[2021-11-21 08:54] LABS: Abs Immature Grans 0.05 10^3/uL (0.0-0.06); Absolute Basophil Count 0.15 10^3/uL (0.0-0.2); Absolute Eosinophil Count 0.43 10^3/uL (0.0-0.7); Absolute Lymphocyte Count 2.46 10^3/uL (1.2-3.4); Absolute Neutrophil Count 6.66 10^3/uL (1.2-6.7); Basophils % 1.4; HCT 44.4 % (40.0-50.0); HGB 14.9 g/dL (13.5-17.5); Immature Grans % 0.5; Lymphocytes % 22.9; MCH 31.2 pg (27.0-33.0); MCHC 33.6 % (32.0-36.0); MCV 93 fL (80-95); MPV 9.7 fL (8.0-11.0); Monocytes % 9.3; Neutrophils % 61.9; Platelet Count 452 10^3/uL (130-400); RBC 4.78 10^6/uL (4.36-5.78); RDW 12.8 % (11.8-14.1); WBC 10.75 10^3/uL (4.4-10.8)
--- NOTE | 2021-11-21 09:03 | DI.RAD_ITS ---
Exam(s) XR PORTABLE CHEST AP EXAM: XR PORTABLE CHEST AP CLINICAL HISTORY: hemoptysis. TECHNIQUE: 2D digital imaging was performed. COMPARISON: CR CHEST 2 VIEWS PA,LAT from 11/07/2017 FINDINGS: Single AP portable view. Heart size is upper normal. There appears to be infiltrate in the right suprahilar region. Possibly exaggerated by the presence of the anterior aspect of the right 1st rib over this region. Mild increased markings in left parahilar region also noted. No pleural effusions IMPRESSION: Bilateral findings as above. Recommend nonportable PA and lateral views when clinically possible or CT scan. DATA REPOSITORY: RADIATION DOSE DELIVERED: All CT scans at this facility use at least one of these dose optimization techniques: automated exposure control; mA and/or kV adjustment per patient size (includes targeted e xams where dose is matched to clinical indication); or iterative reconstruction.
[2021-11-21 09:07] LABS: Albumin 3.7 g/dL (3.4-5.0); Alkaline Phosphatase 119 U/L (46-116); BUN 17 mg/dL (7-18); Bilirubin, Total 0.4 mg/dL (0.2-1.0); CO2 26.3 mmol/L (21.0-32.0); CREATININE 1.4 mg/dL (0.70-1.30); Calcium 8.5 mg/dL (8.5-10.1); Chloride 103 mmol/L (98-107); Estimated GFR 51.35 (mL/min/1.73m2); Glucose 112 mg/dL (74-106); Potassium 3.7 mmol/L (3.5-5.1); Sodium 138 mmol/L (136-145); Total Protein 7.3 g/dL (6.4-8.2)
[2021-11-21 09:08] LABS: ALT 21 U/L (16-63); AST 20 U/L (15-37); Anion Gap 8.7 mmol/L (3-11)
--- NOTE | 2021-11-21 09:15 | DI.CT_ITS ---
Exam(s) CT CHEST WO EXAM: CT CHEST WO CLINICAL HISTORY: RUL mass vs infiltrate, hemoptysis. TECHNIQUE: Multi planar reconstructions were performed. CONTRAST MATERIAL: None COMPARISON: CR XR PORTABLE CHEST AP from 11/21/2021 FINDINGS: CHEST: LUNGS: There is significant infiltrate in the left upper lobe left suprahilar region. This measures approximately 3.8 by 3.7 cm. No other significant left lung findings nor pleural effusion. There is some ground-glass infiltrate also evident in the right lower lobe, medially. No associated pleural effusion. No obvious focal findings in the trachea and mainstem bronchi. Some mucus is noted in lef t upper lobe bronchus. MEDIASTINUM: There is no obvious hilar nor mediastinal adenopathy. Visualized thyroid unremarkable.No obvious axillary adenopathy CARDIAC: Heart size upper normal. No significant pericardial effusion.Caliber of the thoracic aorta is upper normal. VISUALIZED UPPER ABDOMEN:No obvious adrenal masses. The partially visualized left kidney appears atr ophic. OSSEOUS: No significant osseous lesions.. IMPRESSION: 1. There is significant infiltrate in the left upper lobe suprahilar region and medial basal segment of the right lower lobe, not associated with pleural effusions nor obvious adenopathy, realized limit ations of a non few study. 2. Incidentally noted is an atrophic left kidney. The entire kidneys are not included in the field o f view of this chest study. Findings called to ER provider RADIATION DOSE DELIVERED: 516.77mGy.cm Total DLP DATA REPOSITORY: All CT scans at this facility are submitted to the National Radiology Data Registry (NRDR) Dose Index Registry (DIR) with the [employer] ([employer]). RADIATION OPTIMIZATION: All CT scans at this facility use at least one of these dose optimization te chniques: automated exposure control; mA and/or kV adjustment per patient size (includes targeted exa ms where dose is matched to clinical indication); or iterative reconstruction.
[2021-11-21 09:30] LABS: COVID-19 PCR Negative (Negative)
[2021-11-21 09:59] VITALS: BP 130/54; PULSE 68; RESP 14; O2SAT 97
--- NOTE | 2021-11-21 11:00 | NUR.NOTE ---
Nursing Note: PT INFO GIVEN TO PULMONOLOGY AND CARE MANAGEMENT TO BE SEEN WTHININ A FEW WEEKS. [facility], ED
== END 2021-11-21 11:09 | disposition home or self-care (01) ==
PROVIDERS: Emergency Provider Physician Assistant; PCP Nurse Practitioner Family
DX: J18.9 Pneumonia, unspecified organism (principal); R91.8 Other nonspecific abnormal finding of lung field
CPT/HCPCS: 71250; 80053; 87635; 99283; 99284; 71045; 85025

== ENCOUNTER 2021-12-19 01:11 | Outpatient (CLI) | payer MEDICARE, SELFPAY ==
[2021-12-19 12:57] LABS: HCT 41.5 % (40.0-50.0); HGB 13.8 g/dL (13.5-17.5); MCHC 33.3 % (32.0-36.0); MCV 93 fL (80-95); MPV 9.7 fL (8.0-11.0); Platelet Count 478 10^3/uL (130-400); RBC 4.45 10^6/uL (4.36-5.78); RDW 12.7 % (11.8-14.1); RDW-SD 43.8 fL; WBC 7.21 10^3/uL (4.4-10.8)
[2021-12-19 13:21] LABS: ALT 18 U/L (16-63); AST 15 U/L (15-37); Albumin 3.7 g/dL (3.4-5.0); Alkaline Phosphatase 117 U/L (46-116); Anion Gap 9.1 mmol/L (3-11); BUN 14 mg/dL (7-18); Bilirubin, Total 0.5 mg/dL (0.2-1.0); CO2 25.9 mmol/L (21.0-32.0); CREATININE 1.3 mg/dL (0.70-1.30); Calcium 8.5 mg/dL (8.5-10.1); Calculated LDL 86 mg/dL (<100); Chloride 101 mmol/L (98-107); Cholesterol 168 mg/dL (<200); Estimated GFR 55.94 (mL/min/1.73m2); Glucose 99 mg/dL (74-106); HDL Cholesterol 62 mg/dL (40-60); Potassium 4.8 mmol/L (3.5-5.1); Sodium 136 mmol/L (136-145); TSH (W/Ref FT4) 1.24 uIU/mL (0.36-3.74); Total Protein 6.7 g/dL (6.4-8.2); Triglyceride 103 mg/dL (<150)
[2021-12-19 22:50] LABS: PSA, Screening 2.9 ng/mL (<=4.5)
[2021-12-22 10:09] LABS: Hepatitis B Surface Ag Negative (Negative)
[2021-12-22 11:04] LABS: Hepatitis C Ab w Rflx HCV PCR Negative (Negative)
== END 2021-12-19 01:12 | disposition home or self-care (01) ==
LOC: LOS 01:11
PROVIDERS: PCP Nurse Practitioner Family; Visit Provider Family Medicine
DX: I10 Essential (primary) hypertension (principal); I25.10 Atherosclerotic heart disease of native coronary artery without angina pectoris; E78.5 Hyperlipidemia, unspecified; E03.9 Hypothyroidism, unspecified; J18.9 Pneumonia, unspecified organism; Z11.59 Encounter for screening for other viral diseases; Z12.5 Encounter for screening for malignant neoplasm of prostate
CPT/HCPCS: 36415; 80053; 80061; 84153; 85027; 86803; 87340; 84443

== ENCOUNTER → 2022-01-08 02:17 | Outpatient (CLI) | payer MEDICARE, SELFPAY ==
--- NOTE | 2022-01-08 07:45 | DI.RAD_ITS ---
Exam(s) XR CHEST 2V PA LATERAL EXAM: XR CHEST 2V PA LATERAL CLINICAL HISTORY: eval interval change , clinically resolved, EVAL RESOLUTION INFILTRATE TECHNIQUE: 2D digital imaging was performed. COMPARISON: CR CHEST 2 VIEWS PA,LAT from 11/07/[address] CHEST WO from 11/21/2021 CR XR PORTABLE CHEST AP from 11/21/2021 FINDINGS: MEDIASTINUM: Normal. HEART: Normal size. Coronary artery stents. PULMONARY VASCULATURE: Normal. LUNGS: Clearing of previously noted left upper lobe infiltrates. Stable scarring medial right upper lobe. No new infiltrates. PLEURAL SPACE: No pleural effusion or pneumothorax. BONE:Unremarkable for age. IMPRESSION: Resolution of previously noted left upper lobe infiltrate. No new abnormalities. DATA REPOSITORY: RADIATION DOSE DELIVERED:
== END ==
PROVIDERS: PCP Nurse Practitioner Family; Visit Provider Family Medicine
DX: R91.8 Other nonspecific abnormal finding of lung field (principal); J18.9 Pneumonia, unspecified organism
CPT/HCPCS: 71046

== ENCOUNTER 2022-10-05 10:11 | Outpatient (CLI) | payer MEDICARE, SELFPAY ==
[2022-10-05 12:25] LABS: Abs Immature Grans 0.07 10^3/uL (0.0-0.06); Absolute Basophil Count 0.15 10^3/uL (0.0-0.2); Absolute Eosinophil Count 0.29 10^3/uL (0.0-0.7); Absolute Lymphocyte Count 2.59 10^3/uL (1.2-3.4); Absolute Monocyte Count 1.07 10^3/uL (0.1-0.8); Absolute Neutrophil Count 5.43 10^3/uL (1.2-6.7); Basophils % 1.6; HCT 44.1 % (40.0-50.0); HGB 14.9 g/dL (13.5-17.5); Immature Grans % 0.7; MCH 31.9 pg (27.0-33.0); MCHC 33.8 % (32.0-36.0); MCV 94 fL (80-95); MPV 9.3 fL (8.0-11.0); Monocytes % 11.1; Neutrophils % 56.6; Platelet Count 354 10^3/uL (130-400); RBC 4.67 10^6/uL (4.36-5.78); RDW 13.3 % (11.8-14.1); RDW-SD 46.1 fL
[2022-10-05 13:13] LABS: ALT 25 U/L (16-63); AST 24 U/L (15-37); Albumin 3.9 g/dL (3.4-5.0); Alkaline Phosphatase 124 U/L (46-116); Anion Gap 3.2 mmol/L (3-11); BUN 17 mg/dL (7-18); Bilirubin, Total 0.4 mg/dL (0.2-1.0); CO2 31.8 mmol/L (21.0-32.0); CREATININE 1.5 mg/dL (0.70-1.30); Calcium 8.7 mg/dL (8.5-10.1); Calculated LDL 74 mg/dL (<100); Chloride 103 mmol/L (98-107); Cholesterol 169 mg/dL (<200); Estimated GFR 51.99 (mL/min/1.73m2); Glucose 92 mg/dL (74-106); HDL Cholesterol 62 mg/dL (40-60); Potassium 4.5 mmol/L (3.5-5.1); Sodium 138 mmol/L (136-145); TROPONIN-I 10.6 ug/mL (4.0-12.0); TSH (W/Ref FT4) 1.47 uIU/mL (0.36-3.74); Total Protein 7.3 g/dL (6.4-8.2); Triglyceride 165 mg/dL (<150)
== END 2022-10-05 10:12 | disposition home or self-care (01) ==
LOC: LOS 10:12
PROVIDERS: PCP Nurse Practitioner Family; Referring Provider Nurse Practitioner Family; Visit Provider Nurse Practitioner Family
DX: E03.9 Hypothyroidism, unspecified (principal); E78.5 Hyperlipidemia, unspecified; D75.839 Thrombocytosis, unspecified; I25.10 Atherosclerotic heart disease of native coronary artery without angina pectoris; I42.9 Cardiomyopathy, unspecified; G40.A09 Absence epileptic syndrome, not intractable, without status epilepticus; Z51.81 Encounter for therapeutic drug level monitoring; Z79.899 Other long term (current) drug therapy
CPT/HCPCS: 36415; 80053; 80061; 80156; 84443; 85025

== ENCOUNTER 2023-03-02 13:44 | Outpatient (REF) | payer MEDICARE, SELFPAY ==
[2023-03-03 11:03] LABS: Campylobacter PCR Negative (Negative); Salmonella PCR Negative (Negative); Shiga Toxin PCR Negative (Negative); Shigella/Enteroinvasive Ecoli Negative (Negative)
== END 2023-03-02 13:45 | disposition home or self-care (01) ==
LOC: LBN 13:44
PROVIDERS: PCP Nurse Practitioner Family; Visit Provider Nurse Practitioner Family
DX: R19.7 Diarrhea, unspecified (principal)
CPT/HCPCS: 87493; 87505; 87177

== ENCOUNTER 2023-03-05 19:07 | Outpatient (REF) | payer MEDICARE, SELFPAY ==
[2023-03-05 20:12] LABS: C Diff PCR Negative (Negative)
== END 2023-03-05 19:08 | disposition home or self-care (01) ==
LOC: LBN 19:07
PROVIDERS: PCP Nurse Practitioner Family; Visit Provider Nurse Practitioner Family
DX: R19.7 Diarrhea, unspecified (principal)
CPT/HCPCS: 87493

== ENCOUNTER 2023-03-11 10:32 | Outpatient (REF) | payer MEDICARE, SELFPAY | END 2023-03-11 10:33 | disposition home or self-care (01) | LOC: LBN 10:32 | PROVIDERS: PCP Nurse Practitioner Family; Visit Provider Nurse Practitioner Family | DX: R19.7 Diarrhea, unspecified (principal) | CPT/HCPCS: 87329 ==

== ENCOUNTER → 2023-04-14 00:21 | Outpatient (CLI) | payer MEDICARE, SELFPAY ==
--- NOTE | 2023-04-14 07:58 | DI.CT_ITS ---
Exam(s) CT ABDOMEN PELVIS W EXAM: CT ABDOMEN PELVIS W CLINICAL HISTORY: diverticulosis, llq pain, diarrhea, wt loss TECHNIQUE: Imaging Protocol: Axial computed tomography images with coronal and sagittal reformatted images were created and reviewed CONTRAST MATERIAL: Intravenous: Omnipaque 350 Contrast volume:100 mL Oral: Yes COMPARISON: US ABDOMEN ULTRASOUND (P) from 10/09/[address] CHEST WO from 11/21/2021 FINDINGS: ABDOMEN: Lung Bases: Normal where visualized. Liver: Normal density. No measurable mass. Portal, Superior Mesenteric, and Splenic Veins: Unremarkable. Gallbladder and Biliary Tract: No radiodense calculus or dilation. Pancreas: Normal density, no abnormal calcifications or inflammatory process. Spleen: Status post splenectomy. Adrenals: No masses seen. Kidneys: There is scarring of the superior pole of the left kidney. There is a simple cyst in the lef t kidney. No follow-up is recommended. No radiodense stones or obstructive uropathy. No masses seen. Abdominal Aorta: Abdominal portion non-dilated. Atherosclerosis. Bowel: There is diverticulosis of the colon. There is bowel wall thickening and pericolonic inflammat ion in the proximal sigmoid colon consistent with acute diverticulitis. There is no evidence of bowel obstruction. No evidence of appendicitis. Peritoneal Cavity: No ascites, collection or mesenteric inflammatory response. No free air. Lymph Nodes: Within normal limits. Bones: Within normal limits for the patient's age. Soft Tissues: Unremarkable. PELVIS: Bladder: Symmetric distention, no gross wall thickening. Reproductive Organs: Mildly enlarged prostate gland. Prostatic calcifications are present. Lymph Nodes: Within normal limits. Bones: Within normal limits for the patient's age. IMPRESSION: 1. Findings of acute diverticulitis involving the proximal sigmoid colon. No abscess or free air. RADIATION DOSE DELIVERED: 770.76mGy.cm Total DLP DATA REPOSITORY: All CT scans at this facility are submitted to the National Radiology Data Registry (NRDR) Dose Index Registry (DIR) with the [employer] ([employer]). RADIATION OPTIMIZATION: All CT scans at this facility use at least one of these dose optimization te chniques: automated exposure control; mA and/or kV adjustment per patient size (includes targeted exa ms where dose is matched to clinical indication); or iterative reconstruction.
[2023-04-14 08:51] LABS: Absolute Basophil Count 0.16 10^3/uL (0.0-0.2); Absolute Eosinophil Count 0.36 10^3/uL (0.0-0.7); Absolute Lymphocyte Count 2.88 10^3/uL (1.2-3.4); Absolute Monocyte Count 1.16 10^3/uL (0.1-0.8); Absolute Neutrophil Count 7.45 10^3/uL (1.2-6.7); Basophils % 1.3; HCT 40.4 % (40.0-50.0); HGB 13.2 g/dL (13.5-17.5); Immature Grans % 0.8; Lymphocytes % 23.8; MCH 29.6 pg (27.0-33.0); MCHC 32.7 % (32.0-36.0); MCV 91 fL (80-95); MPV 8.5 fL (8.0-11.0); Monocytes % 9.6; Neutrophils % 61.5; Platelet Count 564 10^3/uL (130-400); RBC 4.46 10^6/uL (4.36-5.78); RDW-SD 43.1 fL; WBC 12.12 10^3/uL (4.4-10.8)
[2023-04-14 09:09] LABS: ALT 23 U/L (16-63); AST 22 U/L (15-37); Albumin 3.5 g/dL (3.4-5.0); Alkaline Phosphatase 132 U/L (46-116); Anion Gap 7.3 mmol/L (3-11); BUN 23 mg/dL (7-18); Bilirubin, Total 0.3 mg/dL (0.2-1.0); CO2 27.7 mmol/L (21.0-32.0); CREATININE 1.3 mg/dL (0.70-1.30); Calcium 9.2 mg/dL (8.5-10.1); Chloride 101 mmol/L (98-107); Estimated GFR 61.73 (mL/min/1.73m2); Glucose 98 mg/dL (74-106); Potassium 4.3 mmol/L (3.5-5.1); Sodium 136 mmol/L (136-145); Total Protein 7.9 g/dL (6.4-8.2)
[2023-04-14] MEDS: Barium Sulfate 2% W/V-Berry Smoothie 450 ML BTL 900 ML PO (09:12)
[2023-04-14] MEDS: Omnipaque 350 MG/ML 500 ML BTL-Imaging package IJ (10:25)
[2023-04-14] MEDS: Normal Saline - Diluent 50 ML VIAL IJ (10:26)
[2023-04-14 10:51] LABS: Bilirubin Negative (Negative); Blood Trace-intact (Negative); Clarity Clear (Clear); Glucose Negative (Negative); Ketones Negative (Negative); Leukocyte Esterase Negative (Negative); Nitrite Negative (Negative); Urobilinogen 0.2 mg/dL (Up to 0.2)
[2023-04-14 10:58] LABS: Epithelial Cells Negative HPF (Negative); Other Cells Negative (Negative); RBC 0-2 HPF (0-2); WBC Negative HPF (0-5)
[2023-04-14 10:59] LABS: Bacteria Rare HPF (Negative); C & S Indicated? No; Casts Negative LPF (Negative); Crystals Negative HPF (Negative); Mucus Negative (Negative)
== END ==
PROVIDERS: PCP Nurse Practitioner Family; Visit Provider Family Medicine
DX: K57.30 Diverticulosis of large intestine without perforation or abscess without bleeding (principal); R19.8 Other specified symptoms and signs involving the digestive system and abdomen
CPT/HCPCS: 80053; 74177; 81003; 81015; 85025

== ENCOUNTER → 2023-07-21 18:56 | Outpatient (CLI) | payer MEDICARE, SELFPAY ==
--- NOTE | 2023-07-21 10:00 | DI.CT_ITS ---
Exam(s) CT ABDOMEN PELVIS W EXAM: CT ABDOMEN PELVIS W CLINICAL HISTORY: LLQ abdominal pain K57.92 DIVERTICULITIS. TECHNIQUE: Imaging Protocol: Axial computed tomography images with coronal and sagittal reformatted images were created and reviewed CONTRAST MATERIAL: Intravenous: Omnipaque 350 Contrast volume:100 ml Oral: yes COMPARISON: CR XR CHEST 2V PA LATERAL from 01/08/[address] ABDOMEN PELVIS W from 04/14/2023 FINDINGS: ABDOMEN and PELVIS: Lung Bases: No acute findings. Liver: Normal density. No measurable mass. Gallbladder and biliary tract: No radiodense calculus or dilation. Pancreas: Normal density. No abnormal calcifications or inflammatory process. No evidence of mass. Spleen: Status post splenectomy. Kidneys: Nor scarring upper pole left kidney. No radiodense stones. No obstructive uropathy. No susp icious masses seen. Adrenal glands: No masses seen. Vasculature: Abdominal aorta non-dilated. Soft tissues: Unremarkable. Bladder: No gross wall thickening. No calculi.No focal mass. Bowel: No obstruction. Diverticulosis. Inflammation junction of descending nd sigmoid. No perfora tion or abcess. Appendix normal. Peritoneal cavity: No ascites. No focal collection or mesenteric inflammatory response. Bones: Unremarkable for age. Reproductive organs: Within normal limits. Lymph nodes: Unremarkable. IMPRESSION:: Diverticulitis junction of the sigmoid and descending colon. RADIATION DOSE DELIVERED: Total DLP DATA REPOSITORY: All CT scans at this facility are submitted to the National Radiology Data Registry (NRDR) Dose Index Registry (DIR) with the [employer] ([employer]). RADIATION OPTIMIZATION: All CT scans at this facility use at least one of these dose optimization te chniques: automated exposure control; mA and/or kV adjustment per patient size (includes targeted exa ms where dose is matched to clinical indication); or iterative reconstruction.
[2023-07-21 10:40] LABS: Abs Immature Grans 0.08 10^3/uL (0.0-0.06); Absolute Basophil Count 0.11 10^3/uL (0.0-0.2); Absolute Eosinophil Count 0.19 10^3/uL (0.0-0.7); Absolute Lymphocyte Count 2.21 10^3/uL (1.2-3.4); Absolute Monocyte Count 0.93 10^3/uL (0.1-0.8); Absolute Neutrophil Count 6.63 10^3/uL (1.2-6.7); Basophils % 1.1; Eosinophils % 1.9; HCT 43.8 % (40.0-50.0); HGB 14.3 g/dL (13.5-17.5); Immature Grans % 0.8; Lymphocytes % 21.8; MCH 29.9 pg (27.0-33.0); MCHC 32.6 % (32.0-36.0); MCV 92 fL (80-95); MPV 8.7 fL (8.0-11.0); Monocytes % 9.2; Neutrophils % 65.2; Platelet Count 473 10^3/uL (130-400); RBC 4.78 10^6/uL (4.36-5.78); RDW 13.7 % (11.8-14.1); RDW-SD 46.5 fL; WBC 10.15 10^3/uL (4.4-10.8)
[2023-07-21 11:55] LABS: ALT 25 U/L (16-63); AST 23 U/L (15-37); Albumin 3.5 g/dL (3.4-5.0); Alkaline Phosphatase 88 U/L (46-116); Anion Gap 7.9 mmol/L (3-11); BUN 29 mg/dL (7-18); Bilirubin, Total 0.3 mg/dL (0.2-1.0); CO2 29.1 mmol/L (21.0-32.0); CREATININE 1.4 mg/dL (0.70-1.30); Chloride 101 mmol/L (98-107); Estimated GFR 56.13 (mL/min/1.73m2); Glucose 109 mg/dL (74-106); Potassium 4.1 mmol/L (3.5-5.1); Sodium 138 mmol/L (136-145); Total Protein 7.3 g/dL (6.4-8.2)
[2023-07-21] MEDS: Omnipaque 350 MG/ML 500 ML BTL-Imaging package IJ (12:24)
[2023-07-21] MEDS: Normal Saline - Diluent 50 ML VIAL IJ (12:24)
== END ==
PROVIDERS: PCP Nurse Practitioner Family; Visit Provider Physician Assistant
DX: K57.32 Diverticulitis of large intestine without perforation or abscess without bleeding (principal)
CPT/HCPCS: 80053; 74177; 85025

== ENCOUNTER 2023-09-04 11:04 | Outpatient (REF) | payer MEDICARE, SELFPAY ==
[2023-09-04 14:58] LABS: Abs Immature Grans 0.08 10^3/uL (0.0-0.06); Absolute Basophil Count 0.12 10^3/uL (0.0-0.2); Absolute Eosinophil Count 0.22 10^3/uL (0.0-0.7); Absolute Lymphocyte Count 3.13 10^3/uL (1.2-3.4); Absolute Monocyte Count 1.43 10^3/uL (0.1-0.8); Absolute Neutrophil Count 7.92 10^3/uL (1.2-6.7); Basophils % 0.9; Eosinophils % 1.7; HGB 14.7 g/dL (13.5-17.5); Immature Grans % 0.6; Lymphocytes % 24.3; MCH 31.5 pg (27.0-33.0); MCHC 34.2 % (32.0-36.0); MCV 92 fL (80-95); MPV 9.6 fL (8.0-11.0); Monocytes % 11.1; Neutrophils % 61.4; Platelet Count 371 10^3/uL (130-400); RBC 4.67 10^6/uL (4.36-5.78); RDW 13.7 % (11.8-14.1); RDW-SD 46.4 fL
[2023-09-04 15:04] LABS: Anion Gap 6.5 mmol/L (3-11); BUN 26 mg/dL (7-18); CO2 31.5 mmol/L (21.0-32.0); CREATININE 1.4 mg/dL (0.70-1.30); Calcium 9.4 mg/dL (8.5-10.1); Chloride 103 mmol/L (98-107); Estimated GFR 56.13 (mL/min/1.73m2); Glucose 99 mg/dL (74-106); Potassium 5.2 mmol/L (3.5-5.1); Sodium 141 mmol/L (136-145)
== END 2023-09-04 11:05 | disposition home or self-care (01) ==
LOC: LBN 11:04
PROVIDERS: PCP Nurse Practitioner Family; Visit Provider Nurse Practitioner Family
DX: K57.92 Diverticulitis of intestine, part unspecified, without perforation or abscess without bleeding (principal); R10.9 Unspecified abdominal pain
CPT/HCPCS: 80048; 85025

== ENCOUNTER 2023-09-21 11:17 | Outpatient (CLI) | payer MEDICARE, SELFPAY ==
[2023-09-21 11:29] LABS: Potassium 4.1 mmol/L (3.5-5.1)
== END 2023-09-21 11:18 | disposition home or self-care (01) ==
LOC: LBO 11:17
PROVIDERS: PCP Nurse Practitioner Family; Visit Provider Nurse Practitioner Family
DX: E87.5 Hyperkalemia (principal)
CPT/HCPCS: 36415; 84132

== ENCOUNTER 2023-10-13 16:24 | Outpatient (CLI) | payer MEDICARE, SELFPAY ==
[2023-10-13 11:42] LABS: Calculated LDL 72 mg/dL (<100); Cholesterol 183 mg/dL (<200); HDL Cholesterol 60 mg/dL (40-60); TSH (W/Ref FT4) 1.86 uIU/mL (0.36-3.74); Triglyceride 257 mg/dL (<150)
== END 2023-10-13 16:25 | disposition home or self-care (01) ==
LOC: LBO 16:29
PROVIDERS: PCP Nurse Practitioner Family; Visit Provider Nurse Practitioner Family
DX: E03.9 Hypothyroidism, unspecified (principal); E78.2 Mixed hyperlipidemia
CPT/HCPCS: 36415; 80061; 84443

== ENCOUNTER 2024-04-14 20:34 | Outpatient (REF) | payer MEDICARE, SELFPAY ==
[2024-04-14 21:08] LABS: HCT 42.9 % (40.0-50.0); HGB 14.5 g/dL (13.5-17.5); MCH 31.9 pg (27.0-33.0); MCHC 33.8 % (32.0-36.0); MCV 95 fL (80-95); MPV 9.8 fL (8.0-11.0); Platelet Count 373 10^3/uL (130-400); RBC 4.54 10^6/uL (4.36-5.78); RDW 13.3 % (11.8-14.1); RDW-SD 46.4 fL; WBC 14.01 10^3/uL (4.4-10.8)
[2024-04-14 21:28] LABS: ALT 21 U/L (16-63); AST 29 U/L (15-37); Albumin 3.9 g/dL (3.4-5.0); Alkaline Phosphatase 129 U/L (46-116); Anion Gap 6.2 mmol/L (3-11); BUN 20 mg/dL (7-18); Bilirubin, Total 0.56 mg/dL (0.2-1.0); CO2 27.8 mmol/L (21.0-32.0); CREATININE 1.4 mg/dL (0.70-1.30); Calcium 9.2 mg/dL (8.5-10.1); Chloride 102 mmol/L (98-107); Estimated GFR 56.13 (mL/min/1.73m2); Glucose 88 mg/dL (74-106); Potassium 4.8 mmol/L (3.5-5.1); Sodium 136 mmol/L (136-145); Total Protein 7.1 g/dL (6.4-8.2)
[2024-04-14 21:42] LABS: Absolute Lymphocyte Count 2.24 10^3/uL (1.2-3.4); Absolute Neutrophil Count 9.53 10^3/uL (1.2-6.7); Atypical Lymphocytes % 2 %; Bands % 1 %
[2024-04-14 21:43] LABS: Absolute Monocyte Count 2.24 10^3/uL (0.1-0.8); Diff Comment Manual Differential; RBC Morphology Normal
== END 2024-04-14 20:35 | disposition home or self-care (01) ==
LOC: LBN 20:34
PROVIDERS: PCP Nurse Practitioner Family; Visit Provider Nurse Practitioner Family
DX: K57.32 Diverticulitis of large intestine without perforation or abscess without bleeding (principal)
CPT/HCPCS: 80053; 85025

== ENCOUNTER 2024-09-18 11:26 | Outpatient (CLI) | payer MEDICARE, SELFPAY ==
--- NOTE | 2024-09-18 10:00 | DI.RAD_ITS ---
Exam(s) XR CHEST 2V PA LATERAL EXAM: XR CHEST 2V PA LATERAL CLINICAL HISTORY: eval pna cough R05.9. TECHNIQUE: 2D digital imaging was performed. COMPARISON: CR XR CHEST 2V PA LATERAL from 01/08/2022 FINDINGS: 2 views: There has been interval placement of an aortic valve EVAR and there is also left coronary artery sten t evident. Heart size is normal. The mediastinum is not widened. There is platelike atelectasis noted in the anterior segment of the left upper lobe now evident. Als o in the anterior segment of the right upper lobe. Also mildly increased markings in the right costo phrenic angle. Possible tiny right pleural effusion. IMPRESSION: Aortic valve EVAR and coronary artery stent. Normal heart size. No obvious pulmonary edema. Howeve r, there is platelike atelectasis in both upper lobes and possible mild infiltrate and tiny pleural e ffusion in the right costophrenic angle. DATA REPOSITORY: RADIATION DOSE DELIVERED:
== END 2024-09-18 11:46 ==
LOC: DI 11:27
PROVIDERS: PCP Nurse Practitioner Family; Visit Provider Nurse Practitioner Family
DX: R05.9 Cough, unspecified (principal)
CPT/HCPCS: 71046

== ENCOUNTER 2024-10-10 12:15 | Outpatient (CLI) | payer MEDICARE, SELFPAY ==
[2024-10-10 10:12] LABS: HCT 44.1 % (40.0-50.0); HGB 14.7 g/dL (13.5-17.5); MCH 31.1 pg (27.0-33.0); MCHC 33.3 % (32.0-36.0); MCV 93 fL (80-95); MPV 8.9 fL (8.0-11.0); Platelet Count 344 10^3/uL (130-400); RBC 4.73 10^6/uL (4.36-5.78); RDW 13.1 % (11.8-14.1); RDW-SD 44.7 fL; WBC 16.43 10^3/uL (4.4-10.8)
[2024-10-10 10:37] LABS: COMMENT (LAB VIEW ONLY) 156.84 mg/dL; PROTEIN 32.8 mg/dL
[2024-10-10 10:39] LABS: COMMENT (LAB VIEW ONLY) 156.94 mg/dL; Microalb ug/mg Crea 55.7 ug/mg Cr
[2024-10-10 11:25] LABS: BUN 25 mg/dL (7-18); CREATININE 1.7 mg/dL (0.70-1.30); Calcium 9.7 mg/dL (8.5-10.1); Chloride 101 mmol/L (98-107); Estimated GFR 44.18 (mL/min/1.73m2); Glucose 113 mg/dL (74-106); Potassium 4.6 mmol/L (3.5-5.1); Sodium 137 mmol/L (136-145); TSH (W/Ref FT4) 1.55 uIU/mL (0.36-3.74); Uric Acid 4.2 mg/dL (3.5-7.2)
[2024-10-10 12:09] LABS: Vitamin D 25 Total 22 ng/mL (30-100)
[2024-10-10 18:21] LABS: PSA, Screening 2.4 ng/mL (<=4.5)
[2024-10-12 15:43] LABS: Cystatin C, S 1.52 mg/L; eGFR by Cystatin C 44 mL/min/BSA (>60)
== END 2024-10-10 12:16 | disposition home or self-care (01) ==
LOC: LBO 12:15
PROVIDERS: PCP Nurse Practitioner Family; Visit Provider Nurse Practitioner Family
DX: E03.9 Hypothyroidism, unspecified (principal); N18.30 Chronic kidney disease, stage 3 unspecified; I10 Essential (primary) hypertension; Z12.5 Encounter for screening for malignant neoplasm of prostate
CPT/HCPCS: 36415; 80048; 82306; 82610; 84153; 85027; 82043; 82565; 82570; 84100; 84156; 84443; 84550